=== PATIENT | female | born 1945 | race Caucasian/White ===

== ENCOUNTER → 2018-03-13 13:18 | Outpatient (CLI) | payer MEDICARE, BC | END | disposition home or self-care (01) | LOC: D.CT 13:18 | DX: I10 Essential (primary) hypertension (principal) ==

== ENCOUNTER 2018-03-14 08:00 | Outpatient (CLI) | payer MEDICARE, BC | END 2018-03-14 08:01 | disposition home or self-care (01) | LOC: D.MAMMO 08:00 | DX: Z12.31 Encounter for screening mammogram for malignant neoplasm of breast (principal) ==

== ENCOUNTER → 2018-03-14 11:47 | Outpatient (CLI) | payer MEDICARE, BC | END | disposition home or self-care (01) | LOC: D.LABREF 11:47 | PROVIDERS: Family Medicine Adult Medicine | DX: I10 Essential (primary) hypertension (principal) ==